=== PATIENT | male | born 1940 | race Caucasian/White ===

== ENCOUNTER 2018-10-29 16:53 | Emergency (ER) | payer MEDICARE ==
--- NOTE | 2018-10-29 18:24 | ER Document Report ---
ED Medical Screen (RME) - General Chief Complaint: Abdominal Pain Stated Complaint: NAUSEA Time Seen by Provider: 10/29/18 18:22 Primary Care Provider: EVONNE FLORES [Primary Care Provider] - Follow up as needed Mode of Arrival: Ambulatory Information source: Patient Notes: Patient is a 77-year-old male presented to the emergency department with complaints of lower abdominal pain that started at 230 this morning. Should reports that he felt like he was constipated so he took a laxative last night around midnight. He states he woke up at 2 AM with severe abdominal cramping and had several bowel movements. He reports abdominal cramping and sharp pains lasted through the day with associated nausea. He denies any fever or vomiting. He reports he has taken the same laxative multiple times in the past and has never had this type of persistent pain afterwards. He also reports intermittent hematuria without dysuria. Exam: Tenderness to palpation to left lower and right lower quadrants. I have greeted and performed a rapid initial assessment of this patient. A comprehensive ED assessment and evaluation of the patient, analysis of test results and completion of the medical decision making process will be conducted by additional ED providers. I have specifically instructed the patient or family members with the patient to immediately return to any nursing staff should anything change in the patient's condition or with their chief complaint. This medical record was dictated with voice recognizing software. There may be grammatical, syntax errors that are unintended. TRAVEL OUTSIDE OF THE [place] IN LAST 30 DAYS: No - Related Data Allergies/Adverse Reactions: No Known Allergies Allergy (Verified 10/29/18 16:55) Past Medical History - Past Medical History Cardiac Medical History: Denies: Hx Heart Attack, Hx Hypertension Pulmonary Medical History: Denies: Hx Asthma Neurological Medical History: Denies: Hx Cerebrovascular Accident, Hx Seizures GI Medical History: Denies: Hx Hepatitis, Hx Hiatal Hernia, Hx Ulcer Infectious Medical History: Denies: Hx Hepatitis Past Surgical History: Denies: Hx Open Heart Surgery, Hx Pacemaker Physical Exam - Vital signs Vitals: Temp Pulse Resp BP Pulse Ox 97.6 F 64 16 137/63 H 95 10/29/18 17:06 10/29/18 17:06 10/29/18 17:06 10/29/18 17:06 10/29/18 17:06 Course - Vital Signs Vital signs: Temp Pulse Resp BP Pulse Ox 97.6 F 64 16 137/63 H 95 10/29/18 17:06 10/29/18 17:06 10/29/18 17:06 10/29/18 17:06 10/29/18 17:06 Doctor's Discharge - Discharge Referrals: LOCALMD,NO [Primary Care Provider] - Follow up as needed
[2018-10-29 19:38] LABS: ALANINE AMINOTRANSFERASE 36 U/L (21-72); ALBUMIN 4.8 g/dL (3.5-5.0); ALKALINE PHOSPHATASE 93 U/L (38-126); ANION GAP 13 (5-19); ASPARTATE AMINO TRANSFERASE 24 U/L (17-59); BILIRUBIN,DIRECT 0.3 mg/dL (0.0-0.4); BILIRUBIN,TOTAL 0.6 mg/dL (0.2-1.3); BLOOD UREA NITROGEN 18 mg/dL (7-20); CALCIUM 9.8 mg/dL (8.4-10.2); CARBON DIOXIDE 23 mmol/L (22-30); CHLORIDE 104 mmol/L (98-107); GLUCOSE 119 mg/dL (75-110); POTASSIUM 4.2 mmol/L (3.6-5.0); SODIUM 140.4 mmol/L (137-145); TOTAL PROTEIN 7.6 g/dL (6.3-8.2)
[2018-10-29 19:45] LABS: HEMATOCRIT 47.5 % (37.9-51.0); MEAN CORPUSCULAR HEMOGLOBIN 28.7 pg (27.0-33.4); MEAN CORPUSCULAR HGB CONC 33.7 g/dL (32.0-36.0); MEAN CORPUSCULAR VOLUME 85 fl (80-97); PLATELET COUNT 271 10^3/uL (150-450); RED BLOOD COUNT 5.58 10^6/uL (4.35-5.55); WHITE BLOOD COUNT 16.8 10^3/uL (4.0-10.5)
[2018-10-29 20:01] LABS: ABSOLUTE LYMPHOCYTES# (MANUAL) 0.7 10^3/uL (0.5-4.7); ABSOLUTE MONOCYTES # (MANUAL) 0.7 10^3/uL (0.1-1.4); BAND NEUTROPHILS % (MANUAL) 2 % (3-5); BASOPHILS % (MANUAL) 0 % (0-2); EOSINOPHILS % (MANUAL) 0 % (0-6); LYMPHOCYTES % (MANUAL) 4 % (13-45); MONOCYTES % (MANUAL) 4 % (3-13); PLATELET COMMENT ADEQUATE; RBC MORPHOLOGY COMMENT NORMO-CYTIC/CHROMIC; SEGMENTED NEUTROPHILS % (MAN) 90 % (42-78); TOTAL CELLS COUNTED 100
[2018-10-29 22:19] LABS: APPEARANCE,URINE TURBID; BILIRUBIN,URINE NEGATIVE (NEGATIVE); CALCIUM OXALATE CRYSTALS,URINE MODERATE /HPF; COLOR,URINE AMBER; GLUCOSE, URINE NEGATIVE (NEGATIVE); KETONES,URINE NEGATIVE (NEGATIVE); LEUKOCYTE ESTERASE,URINE NEGATIVE (NEGATIVE); NITRITE,URINE NEGATIVE (NEGATIVE); PROTEIN,URINE 30 mg/dL (NEGATIVE); URINE SPECIFIC GRAVITY 1.026; UROBILINOGEN,URINE NEGATIVE mg/dL (<2.0)
[2018-10-29] MEDS ORDERED: ATENOLOL 50 MG TABLET PO ONE (23:06)
[2018-10-29] MEDS ORDERED: NORMAL SALINE 1000 ML 1,000 ML IV ONE (23:06)
--- NOTE | 2018-10-29 23:33 | ER Document Report ---
ED General - General Chief Complaint: Abdominal Pain Stated Complaint: NAUSEA Time Seen by Provider: 10/29/18 18:22 Primary Care Provider: PREETI ARRIAZA MD [NO LOCAL MD] - Follow up in 3-5 days Mode of Arrival: Ambulatory Notes: Patient is a 77-year-old male that presents to the emergency department for chief complaint of left-sided abdominal pain. Patient states that his pain started last night around midnight, he thought he was constipated took a laxative, but the pain worsened throughout the morning, and was rather severe earlier in the day today, is gotten better since arriving to the hospital, he currently rates his pain as a 1/10 describes as a dull ache in his lower abdomen. He states it was tender to touch but it is not anymore. He does report he had some hematuria earlier in the week as well, but denies having any dysuria, denies fevers, chills, night sweats, chest pain, shortness of breath, difficulty breathing, he did have some mild nausea and one episode of vomiting as well. At this time the nausea and vomiting has been resolved. He is actually feeling quite well. He also reports that he does take a blood pressure pill, atenolol 50 mg daily which she did not take today because he was feeling nausea earlier. Past Medical History: Hypertension Past Surgical History: Hernia repair remotely Social History: Denies current tobacco, alcohol or drug use. Family History: Reviewed and noncontributory for presenting illness Allergies: Reviewed, see documented allergy list. REVIEW OF SYSTEMS: Other than noted above, the 12 point review of systems was reviewed with the patient and were negative, all pertinent findings are included in the HPI. PHYSICAL EXAMINATION: Vital signs reviewed, nursing noted reviewed. GENERAL: Well-appearing, well-nourished and in no acute distress. HEAD: Atraumatic, normocephalic. EYES: Eyes appear normal, extraocular movements intact, sclera anicteric, conjunctiva are normal. ENT: nares patent, oropharynx clear without exudates. Moist mucous membranes. NECK: Normal range of motion, supple without lymphadenopathy LUNGS: Breath sounds clear to auscultation bilaterally and equal. No wheezes rales or rhonchi. HEART: Heart rate tachycardic, regular rhythm, no audible murmur. ABDOMEN: Soft, nontender, normoactive bowel sounds. No rebound, guarding, or rigidity. No masses appreciated. EXTREMITIES: Nontender, good range of motion, no pitting or edema. NEUROLOGICAL: No focal neurological deficits. Moves all extremities spontaneously Motor and sensory grossly intact on exam. PSYCH: Normal mood, normal affect. SKIN: Warm, Dry, normal turgor, no rashes or lesions noted on exposed skin TRAVEL OUTSIDE OF THE [place] IN LAST 30 DAYS: No - Related Data Allergies/Adverse Reactions: No Known Allergies Allergy (Verified 10/29/18 16:55) Past Medical History - General Information source: Patient - Social History Smoking Status: Never Smoker Chew tobacco use (# tins/day): No Frequency of alcohol use: None Drug Abuse: None Family History: Reviewed & Not Pertinent Patient has suicidal ideation: No Patient has homicidal ideation: No - Past Medical History Cardiac Medical History: Denies: Hx Heart Attack, Hx Hypertension Pulmonary Medical History: Denies: Hx Asthma Neurological Medical History: Denies: Hx Cerebrovascular Accident, Hx Seizures Renal/ Medical History: Denies: Hx Peritoneal Dialysis GI Medical History: Denies: Hx Hepatitis, Hx Hiatal Hernia, Hx Ulcer Infectious Medical History: Denies: Hx Hepatitis Past Surgical History: Denies: Hx Open Heart Surgery, Hx Pacemaker Physical Exam - Vital signs Vitals: Temp Pulse Resp BP Pulse Ox 97.6 F 64 16 137/63 H 95 10/29/18 17:06 10/29/18 17:06 10/29/18 17:06 10/29/18 17:06 10/29/18 17:06 Course - Re-evaluation Re-evalutation: Patient seen and examined vital signs reviewed. Laboratory data and/or imaging were ordered as appropriate for the patient's presenting symptoms and complaint, with consideration of any critical or life threatening conditions that may be associated with their obtained history and exam as noted above. Patient was treated with Flomax, pain was controlled upon my evaluation, he was noted to be tachycardic however, and hypertensive, he did not take his atenolol today, he was given a dose of this in the emergency department, and it did improve his heart rate and both his blood pressure. Results were reviewed when available and demonstrated leukocytosis, UA demonstrated hematuria, without evidence of urinary tract infection, I did order CT imaging of the abdomen and pelvis without contrast which did demonstrate a 5 mm UVJ stone. The patient was re-evaluated and was stable, discussed start the patient on Flomax, he is given [place] dispense back of his pain returns, given urinary strainer and advised to follow-up with urology Evaluation was most consistent with ureteral stone. Results were discussed with the patient at this point, after careful consideration I feel that that patient can be discharged from the emergency department, the patient was educated treatments and reasons to return to the emergency department based on their presumed diagnosis as noted above, they were advised to followup with a primary care physician in 2-3 days. Patient was agreeable to plan of care. *Note is created using voice recognition software and may contain spelling, syntax or grammatical errors. Laboratory 10/29/18 10/29/18 10/29/18 18:50 18:50 18:50 WBC 16.8 H RBC 5.58 H Hgb 16.0 Hct 47.5 MCV 85 MCH 28.7 MCHC 33.7 RDW 14.0 Plt Count 271 Total Counted 100 Seg Neutrophils % Not Reportable Seg Neuts % (Manual) 90 H Band Neutrophils % 2 L Lymphocytes % Not Reportable Lymphocytes % (Manual) 4 L Monocytes % Not Reportable Monocytes % (Manual) 4 Eosinophils % Not Reportable Eosinophils % (Manual) 0 Basophils % Not Reportable Basophils % (Manual) 0 Absolute Neutrophils Not Reportable Abs Neuts (Manual) 15.5 H Absolute Lymphocytes Not Reportable Abs Lymphs (Manual) 0.7 Absolute Monocytes Not Reportable Abs Monocytes (Manual) 0.7 Absolute Eosinophils Not Reportable Absolute Eos (Manual) 0.0 Absolute Basophils Not Reportable Abs Basophils (Manual) 0.0 Platelet Comment ADEQUATE RBC Morph Comment NORMO-CYTIC/CHROMIC Sodium 140.4 Potassium 4.2 Chloride 104 Carbon Dioxide 23 Anion Gap 13 BUN 18 Creatinine 1.26 H Est GFR ( Amer) > 60 Est GFR (Non-Af Amer) 55 L Glucose 119 H Calcium 9.8 Total Bilirubin 0.6 Direct Bilirubin 0.3 Neonat Total Bilirubin Not Reportable Neonat Direct Bilirubin Not Reportable Neonat Indirect Bili Not Reportable AST 24 ALT 36 Alkaline Phosphatase 93 Total Protein 7.6 Albumin 4.8 Urine Color SILVER Urine Appearance TURBID Urine pH 5.0 Ur Specific Hughes 1.026 Urine Protein 30 H Urine Glucose (UA) NEGATIVE Urine Ketones NEGATIVE Urine Blood LARGE H Urine Nitrite NEGATIVE Urine Bilirubin NEGATIVE Urine Urobilinogen NEGATIVE Ur Leukocyte Esterase NEGATIVE Urine RBC (Auto) >182 Urine Bacteria (Auto) TRACE Squamous Epi Cells Auto 1 Calcium Oxalate Cr Auto MODERATE Urine Mucus (Auto) MANY Urine Ascorbic Acid NEGATIVE Abdomen/Pelvis CT 10/29/18 23:07 IMPRESSION: 5 mm obstructing stone at the left UVJ with left-sided inflammatory changes. - Vital Signs Vital signs: Temp Pulse Resp BP Pulse Ox 97.9 F 121 H 16 154/87 H 93 10/29/18 21:34 10/29/18 21:34 10/30/18 00:01 10/30/18 00:01 10/30/18 00:01 - Laboratory Result Diagrams: 10/29/18 18:50 10/29/18 18:50 Laboratory results interpreted by me: 10/29/18 10/29/18 10/29/18 18:50 18:50 18:50 WBC 16.8 H RBC 5.58 H Seg Neuts % (Manual) 90 H Band Neutrophils % 2 L Lymphocytes % (Manual) 4 L Abs Neuts (Manual) 15.5 H Creatinine 1.26 H Est GFR (Non-Af Amer) 55 L Glucose 119 H Urine Protein 30 H Urine Blood LARGE H Discharge - Discharge Clinical Impression: Ureteral stone Hypertension Qualifiers: Hypertension type: unspecified Qualified Code(s): I10 - Essential (primary) hypertension Condition: Stable Disposition: HOME, SELF-CARE Instructions: Kidney Stone ([facility]) Additional Instructions: Please follow-up with urology, there are several groups in the area, that have been listed below, please take the Flomax, daily, you can take the pain medicine as prescribed, you can also take [id number] Aleve, 2 tablets twice daily to help with pain as well, do not exceed this or take it with any other anti- inflammatory such as Motrin, ibuprofen or Advil. [email or web address] [place] [email or web address] [email or web address] [place] Please follow-up with Dr. Arriaza as well, to discuss management of your blood pressure. Prescriptions: Tamsulosin HCl [Flomax] 0.4 mg PO DAILY #10 cap.er.24h Referrals: PREETI ARRIAZA MD [NO LOCAL MD] - Follow up in 3-5 days
--- NOTE | 2018-10-30 00:11 | RADIOLOGY REPORT (SQ) ---
CT ABDOMEN PELVIS WITHOUT IV CONTRAST EXAM DATE: 10/29/2018 11:07 PM CDT HISTORY: Hematuria. Left-sided abdominal pain. COMPARISON: None. TECHNIQUE: CT scan of the abdomen and pelvis was performed without IV contrast. This exam was performed according to our departmental dose-optimization program, which includes automated exposure control, adjustment of the mA and/or kV according to patient size and/or use of iterative reconstruction technique. FINDINGS: There is atelectasis/scarring at the lung bases. No pleural or pericardial effusions. No hiatal hernia. There is a 5 mm obstructing stone at the left UVJ with mild left hydroureter and perinephric and periureteric stranding. The right-sided collecting system is patent. Urinary bladder is moderately distended with fluid containing a diverticulum arising superiorly. Prostate gland is enlarged. The liver, spleen, pancreas, and adrenal glands are normal. The gallbladder is contracted, limiting evaluation. No small bowel obstruction. The appendix is normal. There is no evidence of diverticulitis. No intraperitoneal free fluid or free air is identified. There are mild degenerative changes of the spine. The aorta is normal in caliber. No pathologic body wall hernia. IMPRESSION: 5 mm obstructing stone at the left UVJ with left-sided inflammatory changes.
[2018-10-30] MEDS ORDERED: TAMSULOSIN HCL 0.4 MG CAP.SR.24H PO ONE (00:14)
[2018-10-30] MEDS ORDERED: HYDROCODONE/ACETAMINOPHEN 5-325 MG (6 TAB/ER DISP) PO PRN (00:43)
[2018-10-30 01:24] VITALS: BP 153/89
== END 2018-10-30 01:24 | disposition home or self-care (01) ==
LOC: ER 16:53
DX: N20.1 Calculus of ureter (principal); R10.9 Unspecified abdominal pain; I10 Essential (primary) hypertension
CPT/HCPCS: 99284; 96360; 96361; 36415; 85025; 80053; 81001; 74176; A9270 ×3; J7030